=== PATIENT | female | born 1985 | race Caucasian/White ===

== ENCOUNTER 2021-06-29 15:10 | Emergency (ER) | payer OTHER, MEDICAID, SELFPAY ==
[2021-06-29 15:16] VITALS: BP 155/85; PULSE 91; RESP 22; TEMP 37.1; O2SAT 100
[2021-06-29 15:53] LABS: Add Manual Diff / Slide Review NO; Basophils Absolute Auto 0 /uL (0-100); Basophils Percent Auto 0.3 % (0-2); Eosinophils Absolute Auto 400 /uL (0-450); Eosinophils Percent Auto 4.7 % (2-4); Hemoglobin 12.8 g/dL (12.0-16.0); Lymphocytes Absolute Auto 1800 /uL (1100-4500); Lymphocytes Percent Auto 19.3 % (25-40); Mean Corpuscular HGB Conc 33.8 % (30-36); Mean Corpuscular Hemoglobin 28.9 PG (26-34); Mean Corpuscular Volume 85.7 fL (80-100); Monocytes Absolute Auto 700 /uL (0-900); Monocytes Percent Auto 7.3 % (3-14); Neutrophils Absolute Auto 6500 /uL (1500-7000); Neutrophils Percent Auto 68.4 % (50-75); Platelet Count 268 X10^3/uL (150-400); Red Blood Cell Count 4.43 X10^6/uL (4.0-5.2); Red Cell Distribution Width 14.1 % (11.6-14.8); White Blood Cell Count 9.5 X10^3/uL (4.5-11.0)
[2021-06-29 15:57] LABS: Bacteria Urine Few (2-10); Culture Indicated Urine Cult Not Indicated; RBC Urine 1-5/HPF (0-5/HPF); Squamous Epithelial Cell Urine 1-5 /HPF (0-5/HPF); WBC Urine None Seen (0-5/HPF)
[2021-06-29 16:05] LABS: Alanine Aminotransferase 20 IU/L (<35); Albumin 4.2 g/dL (3.5-5.0); Albumin Globulin Ratio 1.3 (1.0-2.8); Alkaline Phosphatase 52 U/L (38-126); Aspartate Aminotransferase 23 IU/L (14-36); BUN Creatinine Ratio 21.9 (6-22); Bilirubin Total 0.3 mg/dL (0.2-1.3); Blood Urea Nitrogen 14 mg/dL (7-17); Carbon Dioxide 27 mmol/L (22-32); Chloride 108 mmol/L (98-107); Estimated Glomerular Filt Rate > 60.0 mL/min (>60); Globulin 3.2 g/dL (1.7-4.1); Glucose 99 mg/dL (70-100); HEMOLYSIS < 15 (0-50); Lipase 93 U/L (23-300); Potassium 3.6 mmol/L (3.4-5.1); Sodium 142 mmol/L (137-145); Total Protein 7.4 g/dL (6.3-8.2)
--- NOTE | 2021-06-29 17:18 | ED.ABDPAIN ---
HPI - Abdominal Pain General Chief Complaint: Abdominal Pain Stated Complaint: ABD PAIN Time Seen by Provider: 06/29/21 17:00 Source: patient Mode of arrival: Ambulatory History of Present Illness HPI narrative: Patient is a 36-year-old female who presents with lower abdominal pain more on the right side started last evening is progressively getting worse. She says that she has had more painful menstrual cycles they have also become more heavy since she gave a year ago. She just started her menstrual cycle last evening. She says it is not any more heavy than normal. She denies any fever or chills. No nausea vomiting or diarrhea. Related Data Previous Rx's Medication Instructions Recorded hydrocodone 5 mg-acetaminophen 325 1 tab PO Q6H PRN #10 tab 06/29/21 mg tablet Review of Systems Review of Systems Narrative: GENERAL: Denies chills, fatigue, malaise, fever, sweats, travel HEENT: Denies sinus pain, ear pain, sore throat, difficulty swallowing, neck pain RESPIRATORY: Denies dyspnea, cough, wheezing, hemoptysis, sputum. CARDIOVASCULAR: Denies chest pain, palpitations, orthopnea, edema GASTROINTESTINAL: See HPI : Denies dysuria, frequency, incontinence, hematuria, urinary retention, flank pain. MUSCULOSKELETAL: Denies weakness, joint pain, or bony pain SKIN: No rash, no erythema, no pruritus NEUROLOGIC: Denies weakness, dizziness, headache, numbness, change in speech, confusion PSYCHIATRIC: No concerning psychosocial issues. 12 point review of systems is negative except for those stated above and HPI Exam Initial Vital Signs Initial Vital Signs: Vital Signs Temperature 98.7 F 06/29/21 15:16 Pulse Rate 91 H 06/29/21 15:16 Respiratory Rate 22 06/29/21 15:16 Blood Pressure 155/85 H 06/29/21 15:16 Pulse Oximetry 100 06/29/21 15:16 GENERAL: Alert 36-year-old female mild tenderness HEENT: Head atraumatic,EOMI, pupils reactive, face symmetric, [moist] mucous membranes CARDIOVASCULAR: Regular rate and rhythm without murmurs, rubs or gallops. RESPIRATORY: Breath sounds equal bilaterally, no wheezes rales or rhonchi. ABDOMEN: Soft, obese, tender right lower quadrant no guarding or rebound negative Fang sign : No CVA tenderness EXTREMITIES: Normal range of motion, no clubbing or edema. Neurovascularly intact NEUROLOGICAL: Alert and oriented x4.Normal gait and speech. SKIN: Warm, dry, no laceration, no petechiae, no rashes or lesions. Course Orders Ordered: Discontinued Medications Hydrocodone Bitart/Acetaminophen (Hydrocodone/Acet 5/325 Prepack) 1 bottle MISC SEEINSTR ONE Stop: 06/29/21 19:45 Last Admin: 06/29/21 19:48 Dose: 1 bottle Documented by: Hydromorphone HCl (Hydromorphone 0.5 Mg Inj) 0.5 mg IV NOW ONE Stop: 06/29/21 19:22 Last Admin: 06/29/21 19:25 Dose: 0.5 mg Documented by: Ketorolac Tromethamine (Ketorolac 30 Mg/Ml Vial) 15 mg IV NOW ONE Stop: 06/29/21 17:35 Last Admin: 06/29/21 17:56 Dose: 15 mg Documented by: STEPHANIE Vital Signs Vital signs: Vital Signs - 8 hr 06/29/21 15:16 06/29/21 18:01 Temperature 98.7 F Pulse Rate 91 H 79 Respiratory Rate 22 Blood Pressure 155/85 H 161/79 H Pulse Oximetry 100 100 MDM - Abdominal Pain Lab Data Result diagrams: 06/29/21 15:40 06/29/21 15:40 Labs: Lab Results 06/29/21 06/29/21 06/29/21 Range/Units 15:28 15:40 15:40 WBC 9.5 (4.5-11.0) X10^3/uL RBC 4.43 (4.0-5.2) X10^6/uL Hgb 12.8 (12.0-16.0) g/dL Hct 38.0 (36-46) % MCV 85.7 (80-100) fL MCH 28.9 (26-34) PG MCHC 33.8 (30-36) % RDW 14.1 (11.6-14.8) % Plt Count 268 (150-400) X10^3/uL Neut % (Auto) 68.4 (50-75) % Lymph % (Auto) 19.3 L (25-40) % [place] % (Auto) 7.3 (3-14) % Eos % (Auto) 4.7 H (2-4) % Baso % (Auto) 0.3 (0-2) % Neut # (Auto) 6500 (8193-6051) /uL Lymph # (Auto) 1800 (7417-7431) /uL [place] # (Auto) 700 (0-900) /uL Eos # (Auto) 400 (0-450) /uL Baso # (Auto) 0 (0-100) /uL Sodium 142 (137-145) mmol/L Potassium 3.6 (3.4-5.1) mmol/L Chloride 108 H (98-107) mmol/L Carbon Dioxide 27 (22-32) mmol/L BUN 14 (7-17) mg/dL Creatinine 0.64 (0.52-1.04) mg/dL Estimated GFR > 60.0 (>60) mL/min BUN/Creatinine Ratio 21.9 (6-22) Glucose 99 (70-100) mg/dL Calcium 9.0 (8.4-10.2) mg/dL Total Bilirubin 0.3 (0.2-1.3) mg/dL AST 23 (14-36) IU/L ALT 20 (<35) IU/L Alkaline Phosphatase 52 (38-126) U/L Total Protein 7.4 (6.3-8.2) g/dL Albumin 4.2 (3.5-5.0) g/dL Globulin 3.2 (1.7-4.1) g/dL Albumin/Globulin Ratio 1.3 (1.0-2.8) Lipase 93 (23-300) U/L Urine RBC 1-5/hpf (0-5/HPF) Urine WBC None seen (0-5/HPF) Ur Squamous Epith Cells 1-5 /hpf (0-5/HPF) Urine Bacteria Few (2-10) H (None) Ur Culture Indicated? Cult not indicated Point of care testing: Point of Care Testing Test Results Negative Urine Dip Bedside Urine Glucose Negative Bedside Urine Bilirubin + 1 Bedside Urine Ketone - Negative Urine Specific [place] 1.030 Bedside Urine Occult Blood +++ Bedside Urine pH 6.0 Bedside Urine Protein - Negative Bedside Urine Urobilinogen - Negative Bedside Urine Nitrite - Negative Bedside Urine Leukocytes - Negative Esterase Imaging Data CT scan - abdomen/pelvis: Radiologist's Impression: PROCEDURE:? CT ABDOMEN PELVIS W CON ? INDICATIONS:? rlq pain ? TECHNIQUE:? After the administration of IV contrast, axial sections were acquired from the lung bases to the pubic symphysis.? Coronal and sagittal reformats were performed.? For radiation dose reduction, the following was used:? automated exposure control, adjustment of mA and/or kV according to patient size. ? COMPARISON:? None. ? FINDINGS:? Image quality:? Excellent.? ? Lung bases:? Unremarkable.? ? Heart:? No significant findings. ? ? ABDOMEN: Liver:? Liver is steatosis. Gallbladder:? Gallbladder has been removed.? ? Biliary ducts:? Unremarkable.? ? Pancreas:? Unremarkable.? ? Spleen:? Unremarkable.? ? Adrenal Glands:? Unremarkable.? ? Kidneys and Ureters:? There is no obstruction.? No calcifications. ? Stomach and Bowel:? Stomach, small bowel loops, and colon are unremarkable.? Peritoneum:? No abnormal intraperitoneal fluid.? No free air.? ? Ventral Wall: ? Small fat containing ventral hernia is present..? Abdominal Nodes:? No retroperitoneal or mesenteric adenopathy by size criteria.? Vessels:? Aorta and inferior vena cava are normal in size.? ? PELVIS: Pelvic Organs:? Unremarkable.? ? There is a lobulated focus predominantly low attenuation with multiple areas of septation in the right posterior inferior pelvis measuring 10.1 cm AP x 8 1 cm transverse by 6.0 cm craniocaudal.? There is a solid nodular component identified in the inferior midline aspect on series 2, image 82 measuring 1.9 x 1.7 cm.? It is in direct approximation to the rectosigmoid colon with right to left displacement and mass effect.? No proximal obstruction.? The mass is distinctly separate and inferior from the right adnexa.? It is in direct approximation to the right posterior inferior lateral uterus. ? Bladder:? Unremarkable.? ? Pelvic Nodes: No enlarged lymph nodes.? Miscellaneous: No inguinal hernias are seen. ? ? ? Bones:? Unremarkable.? IMPRESSION:? 1. Solid and cystic appearing mass within the right lower pelvis as above.? 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 Other origins cannot be definitively excluded.? There is mild mass effect along the right uterus as well as rectosigmoid colon.? No proximal obstruction.? Further evaluation is recommended as appearance is concerning for malignancy.? ? Dictated by: Nette Solis M.D. on 06/29/2021 at 18:10 ? ? US - TRUCK DRIVING INSTRUCTOR: Radiologist's Impression: PROCEDURE:? US PELVIC COMPLETE ? INDICATIONS:? RIGHT LOWER QUADRANT MASS ? TECHNIQUE:? Real-time scanning was performed of the pelvic organs, with image documentation.? Additional endovaginal scanning was necessary due to incomplete visualization of the adnexal and endometrial structures by transabdominal scanning.? ? COMPARISON:? [facility], CT, CT ABDOMEN PELVIS W CON, 06/29/2021, 17:49. ? FINDINGS:? ?? Uterus:? Uterus is normal in size at 8.0 x 5.5 x 4.3 cm.? The endometrium measures 10.5 mm in combined thickness.? ? Ovaries:? Not well seen. ? Other: ? As identified on CT exam of 06/29/2021, there is a heterogeneous septated mass within the lower pelvis measuring approximately 12.0 x 7.8 x 5.7 cm.? There is areas of soft tissue component, as identified on CT exam.? Areas of increased vascularity are identified.? It is inferior to the adnexa.? It is posterior to the cervix. ? IMPRESSION:? ? 1. Septated mass with soft tissue component increased vascularity within the posterior inferior pelvis as described above.? Origin remains unclear, as if this is GI, life educator or other etiology.? Although it not arising from the adnexa, cannot exclude uterine or adjacent bowel origin.? Relationship to TRUCK DRIVING INSTRUCTOR structures and colon are better appreciated on prior CT exam.? OBGYN/surgery/oncology consult is recommended as appearance is concerning for malignancy. ? ? ? Dictated by: Nette Solis M.D. on 06/29/2021 at 19:36 ? ? Approved by: Nette Solis M.D. on 06/29/2021 at 19:39 ? MDM Narrative Medical decision making narrative: Patient initially complains of right lower quadrant pain has progressively gotten worse. Initial thought with appendicitis, however CT confirmed mass in the pelvis. Difficult to tell if it is life educator related or colon related. Her pain is controlled with dilaudid and she did have some improvement with Toradol. I called her primary care provider she will need close follow-up and definitely more testing. Discharge Plan Departure Patient Disposition: Home Clinical Impression: Abdominal or pelvic swelling, mass, or lump, right lower quadrant Instructions: DI for Excision of Mass Activity Restrictions/Additional Instructions: At this time you are found to have a mass in your right lower quadrant. I have called and notified her primary care provider you will need close outpatient follow-up and further evaluation and probable surgery. Continue previous medications as prescribed Take Centerview 1 tablet every 6 hours if needed for severe pain Please follow-up with her primary care provider in 2-3 days Return to nearest emergency department if you should have any new or worsening symptoms CONTROLLED SUBSTANCE DISCHARGE (Narcotoic/benzodiazepine/Flexeril/Phenergan) 1. You have been prescribed narcotic medications, it does have acetaminophen/Tylenol/paracetamol in it, DO NOT TAKE MORE THAN 4,00mg in 24 hours of Tylenol. TRAMADOL DOES NOT CONTAIN TYLENOL 2. Please understand that we cannot provide further refills of narcotics, benzodiazepines or controlled substances through the ED and her pain management will need to be through your provider. 3. While on these medications you cannot drive or operate heavy machinery. 4. You cannot sign legal documents or perform any duties such as this. 5. As long as you're taking opiate pain medications he should also be taking a stool softener such as Colace, Dulcolax, MiraLAX or prune juice, to help avoid constipation. Prescriptions: New hydrocodone-acetaminophen 5-325 mg tablet 1 tab PO Q6H PRN (Reason: pain) Qty: 10 RF: 0 Referrals: Brady Tony DO [Non-Staff] - Stand Alone Forms: Work Release Note
--- NOTE | 2021-06-29 17:34 | DI.CT.S_ITS ---
PROCEDURE: CT ABDOMEN PELVIS W CON INDICATIONS: rlq pain TECHNIQUE: After the administration of IV contrast, axial sections were acquired from the lung bases to the pubic symphysis. Coronal and sagittal reformats were performed. For radiation dose reduction, the following was used: automated exposure control, adjustment of mA and/or kV according to patient size. COMPARISON: None. FINDINGS: Image quality: Excellent. Lung bases: Unremarkable. Heart: No significant findings. ABDOMEN: Liver: Liver is steatosis. Gallbladder: Gallbladder has been removed. Biliary ducts: Unremarkable. Pancreas: Unremarkable. Spleen: Unremarkable. Adrenal Glands: Unremarkable. Kidneys and Ureters: There is no obstruction. No calcifications. Stomach and Bowel: Stomach, small bowel loops, and colon are unremarkable. Peritoneum: No abnormal intraperitoneal fluid. No free air. Ventral Wall: Small fat containing ventral hernia is present.. Abdominal Nodes: No retroperitoneal or mesenteric adenopathy by size criteria. Vessels: Aorta and inferior vena cava are normal in size. PELVIS: Pelvic Organs: Unremarkable. There is a lobulated focus predominantly low attenuation with multiple areas of septation in the right posterior inferior pelvis measuring 10.1 cm AP x 8 1 cm transverse by 6.0 cm craniocaudal. There is a solid nodular component identified in the inferior midline aspect on series 2, image 82 measuring 1.9 x 1.7 cm. It is in direct approximation to the rectosigmoid colon with right to left displacement and mass effect. No proximal obstruction. The mass is distinctly separate and inferior from the right adnexa. It is in direct approximation to the right posterior inferior lateral uterus. Bladder: Unremarkable. Pelvic Nodes: No enlarged lymph nodes. Miscellaneous: No inguinal hernias are seen. Bones: Unremarkable. IMPRESSION: 1. Solid and cystic appearing mass within the right lower pelvis as above. It is uncertain as to origin, whether PROFESSOR OF MATHEMATICS or potentially gastrointestinal. Other origins cannot be definitively excluded. There is mild mass effect along the right uterus as well as rectosigmoid colon. No proximal obstruction. Further evaluation is recommended as appearance is concerning for malignancy. Dictated by: Nette Solis M.D. on 06/29/2021 at 18:10 Approved by: Nette Solis M.D. on 06/29/2021 at 18:15
[2021-06-29] MEDS: KETOROLAC 30 MG/ML VIAL 15 MG IV (17:56)
[2021-06-29 18:01] VITALS: BP 161/79; PULSE 79; O2SAT 100
--- NOTE | 2021-06-29 18:30 | DI.US.S_ITS ---
PROCEDURE: US PELVIC COMPLETE INDICATIONS: RIGHT LOWER QUADRANT MASS TECHNIQUE: Real-time scanning was performed of the pelvic organs, with image documentation. Additional endovaginal scanning was necessary due to incomplete visualization of the adnexal and endometrial structures by transabdominal scanning. COMPARISON: [facility], CT, CT ABDOMEN PELVIS W CON, 06/29/2021, 17:49. FINDINGS: Uterus: Uterus is normal in size at 8.0 x 5.5 x 4.3 cm. The endometrium measures 10.5 mm in combined thickness. Ovaries: Not well seen. Other: As identified on CT exam of 06/29/2021, there is a heterogeneous septated mass within the lower pelvis measuring approximately 12.0 x 7.8 x 5.7 cm. There is areas of soft tissue component, as identified on CT exam. Areas of increased vascularity are identified. It is inferior to the adnexa. It is posterior to the cervix. IMPRESSION: 1. Septated mass with soft tissue component increased vascularity within the posterior inferior pelvis as described above. Origin remains unclear, as if this is GI, channel manager or other etiology. Although it not arising from the adnexa, cannot exclude uterine or adjacent bowel origin. 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 OBGYN/surgery/oncology consult is recommended as appearance is concerning for malignancy. Dictated by: Nette Solis M.D. on 06/29/2021 at 19:36 Approved by: Nette Solis M.D. on 06/29/2021 at 19:39
[2021-06-29] MEDS: HYDROMORPHONE 0.5 MG INJ IV (19:25)
[2021-06-29] MEDS: HYDROCODONE/ACET 5/325 PREPACK 1 BOTTLE MISC (19:48)
[2021-06-29 19:53] VITALS: BP 130/81; PULSE 81; RESP 16; O2SAT 99
== END 2021-06-29 19:54 | disposition home or self-care (01) ==
PROVIDERS: Emergency Provider Emergency Medicine
DX: R19.03 Right lower quadrant abdominal swelling, mass and lump (principal)
CPT/HCPCS: 36415; 74177; 76830; 76856; 80053; 81003; 81015; 81025; 83690; 85025; 96374; 96375; 99284; J1170; J1885